=== PATIENT | female | born 1960 | race Caucasian/White ===

== ENCOUNTER 2017-09-24 14:24 | Emergency (ER) | payer OTHER ==
[~2017-09-24] VITALS: Ht 154.9 cm; Wt 79.4 kg
[~2017-09-24 14:24] MED LIST: CIPROFLOXIN HC2.5 M1 OTIC; FLAGYL500 M1 PO; GLIPIZIDE 10 MG10 MG PO; METFORMIN HCL500 MG PO; MICONAZOLE NITR30 GM TP
[2017-09-24] MEDS ORDERED: IBUPROFEN 600600 M1 PO (14:39)
[2017-09-24] MEDS ORDERED: SUDAFED PE10 M2 PO (14:39)
[2017-09-24] MEDS ORDERED: AMOXICILLIN875 MG PO (14:53)
[2017-09-24 15:06] VITALS: BP 140/79
[2017-09-25] MEDS ORDERED: HYDROCODON-ACE1 EAC7 PO (16:00)
[2017-09-25] MEDS ORDERED: 12 HOUR NASAL R15 ML INH (16:00)
== END 2017-09-24 15:07 | disposition home or self-care (01) ==
LOC: M.ERS 14:24
DX: J01.90 Acute sinusitis, unspecified (principal); E11.9 Type 2 diabetes mellitus without complications; Z98.890 Other specified postprocedural states

== ENCOUNTER 2017-09-25 15:33 | Emergency (ER) | payer OTHER ==
[~2017-09-25] VITALS: Ht 154.9 cm; Wt 77.1 kg
[~2017-09-25 15:33] MED LIST changes: +AMOXICILLIN875 MG PO; +IBUPROFEN 600600 M1 PO; +SUDAFED PE10 M2 PO
[2017-09-25] MEDS ORDERED: HYDROCODON-ACE1 EAC7 PO (16:00)
[2017-09-25] MEDS ORDERED: 12 HOUR NASAL R15 ML INH (16:00)
[2017-09-25 16:05] VITALS: BP 129/89
== END 2017-09-25 16:05 | disposition home or self-care (01) ==
LOC: M.ERS 15:33
DX: J01.90 Acute sinusitis, unspecified (principal); E11.9 Type 2 diabetes mellitus without complications; Z90.49 Acquired absence of other specified parts of digestive tract; Z98.890 Other specified postprocedural states

== ENCOUNTER 2018-07-07 22:35 | Inpatient (IN) | payer OTHER ==
[~2018-07-07] VITALS: Ht 154.9 cm; Wt 82.6 kg
[~2018-07-07 22:35] MED LIST changes: +12 HOUR NASAL R15 ML INH; +HYDROCODON-ACE1 EAC7 PO
[2018-07-07 22:53] VITALS: BP 130/71
[2018-07-07] MEDS ORDERED: LANTUS SUBQ (22:58)
[2018-07-07] MEDS ORDERED: ASPIR 8181 MG PO (22:59)
[2018-07-07 23:38] LABS: ABSOLUTE EOSINOPHILS 0.1 thou/uL (0.0-0.7); ABSOLUTE LYMPHOCYTES 1.4 thou/uL (0.8-5.3); ABSOLUTE MONOCYTES 0.7 thou/uL (0.0-1.2); ABSOLUTE NEUTROPHILS 8.6 thou/uL (1.6-8.1); HEMOGLOBIN 13.1 gm/dL (12.0-15.0); MCV 92.4 fL (80.0-100.0); WBC 10.8 thou/uL (4.0-11.0)
[2018-07-07 23:39] LABS: BASOPHILS 0.4 %; EOSINOPHILS 0.8 %; HEMATOCRIT 39.5 % (37.0-47.0); LYMPHOCYTES 13.1 %; MCH 30.7 pg (26.0-34.0); MCHC 33.2 g/dL (28.0-37.0); MONOCYTES 6.2 %; MPV 9.3 fl. (7.2-11.1); NUCLEATED RBCS 0 /100WBC; PLATELET COUNT* 201 thou/uL (150-400); POLYS 79.5 %; RBC 4.28 mil/uL (4.20-5.00); RDW-CV 12.9 % (10.5-14.5)
[2018-07-07 23:52] LABS: CALCIUM 8.8 mg/dL (8.5-10.1); CREATININE 0.8 mg/dL (0.6-1.3); POTASSIUM 3.8 mmol/L (3.5-5.1)
[2018-07-08 00:05] LABS: ALBUMIN 3.4 g/dL (3.4-5.0); TOTAL BILIRUBIN 0.4 mg/dL (<0.1-1.0); TOTAL PROTEIN 7.2 g/dL (6.4-8.2)
[2018-07-08 01:11] VITALS: BP 130/71
[2018-07-08 01:55] VITALS: BP 126/81
[2018-07-08 08:00] VITALS: BP 125/72
[2018-07-08 08:43] LABS: HEMATOCRIT 35.6 % (37.0-47.0); HEMOGLOBIN 11.8 gm/dL (12.0-15.0); MCH 30.6 pg (26.0-34.0); MCV 92.6 fL (80.0-100.0); MPV 9.5 fl. (7.2-11.1); RBC 3.85 mil/uL (4.20-5.00); RDW-CV 12.7 % (10.5-14.5)
[2018-07-08 08:50] LABS: ALBUMIN 2.9 g/dL (3.4-5.0); CALCIUM 7.8 mg/dL (8.5-10.1); CREATININE 0.7 mg/dL (0.6-1.3); POTASSIUM 3.8 mmol/L (3.5-5.1); TOTAL BILIRUBIN 0.3 mg/dL (<0.1-1.0); TOTAL PROTEIN 6.4 g/dL (6.4-8.2)
[2018-07-08 20:15] VITALS: BP 118/74
[2018-07-09 04:43] LABS: HEMATOCRIT 32.7 % (37.0-47.0); HEMOGLOBIN 10.8 gm/dL (12.0-15.0); MCH 30.7 pg (26.0-34.0); MCHC 33.1 g/dL (28.0-37.0); MCV 92.9 fL (80.0-100.0); RBC 3.53 mil/uL (4.20-5.00); WBC 7.3 thou/uL (4.0-11.0)
[2018-07-09 04:59] LABS: ALBUMIN 2.7 g/dL (3.4-5.0); CALCIUM 7.9 mg/dL (8.5-10.1); CREATININE 0.8 mg/dL (0.6-1.3); MAGNESIUM 1.7 mg/dL (1.8-2.4); POTASSIUM 4.2 mmol/L (3.5-5.1); TOTAL BILIRUBIN 0.2 mg/dL (<0.1-1.0); TOTAL PROTEIN 5.6 g/dL (6.4-8.2)
[2018-07-09 07:40] VITALS: BP 136/79
[2018-07-09] MEDS ORDERED: DOXYCYCLINE 10100 MG PO (09:58)
[2018-07-09] MEDS ORDERED: HYDROCODON-ACE1 EAC7 PO (09:58)
[2018-07-09 10:22] VITALS: BP 136/79
[2018-07-09 22:08] LABS: HEPATITIS B SURFACE AG Negative (Negative)
== END 2018-07-09 13:16 | disposition home or self-care (01) | DRG 603 ==
LOC: M.ERS 22:35 → M.3W 07-08 00:43 → M.TBA-ER 07-08 00:43 → M.3W 07-08 01:42
PROVIDERS: Internal Medicine; Nurse Practitioner Family; ADMIT Family Medicine
DX: L03.317 Cellulitis of buttock (principal); E11.65 Type 2 diabetes mellitus with hyperglycemia; E66.9 Obesity, unspecified; Z90.49 Acquired absence of other specified parts of digestive tract; Z87.891 Personal history of nicotine dependence; Z86.73 Personal history of transient ischemic attack (TIA), and cerebral infarction without residual deficits; Z86.14 Personal history of Methicillin resistant Staphylococcus aureus infection; Z79.899 Other long term (current) drug therapy; Z68.34 Body mass index [BMI] 34.0-34.9, adult; Z79.82 Long term (current) use of aspirin; Z23 Encounter for immunization

== ENCOUNTER 2018-09-21 16:16 | Emergency (ER) | payer OTHER ==
[~2018-09-21] VITALS: Ht 152.4 cm; Wt 83.9 kg
[~2018-09-21 16:16] MED LIST changes: +ASPIR 8181 MG PO; +DOXYCYCLINE 10100 MG PO; +LANTUS SUBQ
[2018-09-21 17:35] LABS: CALCIUM 8.8 mg/dL (8.5-10.1); CREATININE 1.3 mg/dL (0.6-1.3); POTASSIUM 4.7 mmol/L (3.5-5.1)
[2018-09-21] MEDS ORDERED: GLUCOPHAGE1000 MG PO (18:11)
[2018-09-21 18:31] VITALS: BP 127/74
== END 2018-09-21 18:33 | disposition home or self-care (01) ==
LOC: M.ERS 16:16
PROVIDERS: Physician Assistant
DX: M25.562 Pain in left knee (principal); E11.649 Type 2 diabetes mellitus with hypoglycemia without coma; Z79.4 Long term (current) use of insulin; Z90.49 Acquired absence of other specified parts of digestive tract; Z86.73 Personal history of transient ischemic attack (TIA), and cerebral infarction without residual deficits; Z98.890 Other specified postprocedural states

== ENCOUNTER 2019-01-07 00:23 | Emergency (ER) | payer OTHER ==
[~2019-01-07] VITALS: Ht 154.9 cm; Wt 85.7 kg
[~2019-01-07 00:23] MED LIST changes: +GLUCOPHAGE1000 MG PO
[2019-01-07] MEDS ORDERED: SYNTHROID100 MC1 PO (00:36)
[2019-01-07] MEDS ORDERED: ST. JOSEPH ASPI81 MG PO (00:36)
[2019-01-07] MEDS ORDERED: [UNRECOGNIZED DRUG - REMARK] (00:37)
[2019-01-07] MEDS ORDERED: HYDROCODONE-AP1 EA11 PO (01:52)
[2019-01-07] MEDS ORDERED: ZOFRAN ODT4 MG PO (01:52)
[2019-01-07 02:08] VITALS: BP 150/80
== END 2019-01-07 02:09 | disposition home or self-care (01) ==
LOC: M.ERS 00:23
DX: S06.0X0A Concussion without loss of consciousness, initial encounter (principal); E11.9 Type 2 diabetes mellitus without complications; Z90.49 Acquired absence of other specified parts of digestive tract; Z87.891 Personal history of nicotine dependence; Z90.89 Acquired absence of other organs; Z86.73 Personal history of transient ischemic attack (TIA), and cerebral infarction without residual deficits; Z79.4 Long term (current) use of insulin; W20.8XXA Other cause of strike by thrown, projected or falling object, initial encounter; Y92.89 Other specified places as the place of occurrence of the external cause; Y99.0 Civilian activity done for income or pay; Y99.8 Other external cause status